=== PATIENT | female | born 1935 ===

== ENCOUNTER 2018-03-17 20:27 | Inpatient (IN) | payer MEDICARE, BC ==
[~2018-03-17] VITALS: Ht 157.5 cm; Wt 53.1 kg
--- NOTE | 2018-03-17 20:39 | NUR ---
Suicide precautions implemented.
--- NOTE | 2018-03-17 20:50 | NUR ---
ER medically cleared pt for MHU admission
[2018-03-17] MEDS ORDERED: LATA7.5D OP (21:01)
[2018-03-17] MEDS ORDERED: BUDE180A IH (21:01)
[2018-03-17] MEDS ORDERED: FLUT16SP EA NOSTRIL (21:01)
[2018-03-17] MEDS ORDERED: OMEG-130 PO (21:01)
[2018-03-17] MEDS ORDERED: CRAN405C PO (21:01)
[2018-03-17] MEDS ORDERED: GLUC-208 PO (21:01)
[2018-03-17] MEDS ORDERED: CART5DRO EACHEYE (21:01)
[2018-03-17] MEDS ORDERED: LEVO88TA2 PO (21:01)
[2018-03-17] MEDS ORDERED: MAGN400C PO (21:01)
[2018-03-17] MEDS ORDERED: CALC-36 PO (21:01)
[2018-03-17] MEDS ORDERED: FEXO180T94 PO (21:01)
[2018-03-17] MEDS ORDERED: ASCO10007 PO (21:01)
[2018-03-17] MEDS ORDERED: VITA0.4T18 PO (21:01)
[2018-03-17] MEDS ORDERED: BETA60LO4 TP (21:01)
[2018-03-17] MEDS ORDERED: VITA400C68 PO (21:01)
--- NOTE | 2018-03-17 21:08 | NUR ---
Report given to BONNY Hampton
--- NOTE | 2018-03-17 21:49 | NUR ---
Pt. admitted to MHU , under care of Dr. Shannon/Ephraim Lee DNP Belongs List completed
[2018-03-17] MEDS ORDERED: MAG HYDROX/AL HYDROX/SIMETH 30 ML LIQUID UDC PO PRN (22:00)
[2018-03-17 22:33] VITALS: BP 125/71
--- NOTE | 2018-03-17 23:00 | NUR ---
AT APPROX 2215 ADMITTED 82 YEARS OLD FEMALE FROM [facility] ON A [address] [facility]. ACCORDING TO HOLD, PATIENT LIVES AT HOME ALONE. SHE OD ON AN UNKNOWN AMOUNT OF ADVIL PILLS AND TOLD HER DAUGHTER THAT SHE WANTED TO . PATIENT WAS MEDICALLY CLEARED AT THE SAME HOSPITAL. HOLD WILL BE UP ON 03/20/18 AT 0625. FACE TO FACE ASSESSMENT WAS DONE. PATIENT. PATIENT IS NOTED A/O X4 AMBULATORY. SHE STATED THAT SHE OD ON PILLS BECAUSE SHE IS FEELING DEPRESSED SINCE HER THREE SISTER IN THE LAST YEARS; HOWEVER, SHE STATED THAT "IT WAS VERY STUPID OF ME TO DO THAT AND I REGRET IT." PATIENT IS ABLE TO CFS. SKIN ASSESSMENT DONE, WARM AND INTACT EXCEPT FOR SOME PURPLE SPOT ON HER LEFT ANTECUBITAL ARM, PER PATIENT, IT IS FROM BLOOD DRAWS FORM THE OTHER HOSPITAL. PATIENT IS UNDER THE CARE OF DR LEARY, WE WILL CONTINUE TO MONITOR.
[2018-03-17] MEDS: TEMAZEPAM 7.5 MG CAPSULE PO PRN (23:56)
--- NOTE | 2018-03-18 03:58 | NUR ---
ACCORDING TO RECORDS AND PER PATIENT, SHE HAD A COMPLETE RIGHT KNEE REPLACEMENT ON 09/27/17 AND SHE FELL AT HOME ON 02/25/18
[2018-03-18] MEDS ORDERED: LORAZEPAM 0.5 MG TABLET PO PRN (04:30)
[2018-03-18 07:30] VITALS: BP 124/58
[2018-03-18] MEDS: LEVOTHYROXINE SODIUM 88 MCG TABLET PO SCH (08:38)
[2018-03-18] MEDS: FLUTICASONE PROP NASAL SPRAY 16 GM BOTTLE NS SCH (08:51)
[2018-03-18] MEDS: BETAMETHASONE VALERATE 0.1% TP SCH ×2 (08:51→17:00)
[2018-03-18] MEDS: FEXOFENADINE HCL 180 MG TABLET PO SCH (08:51)
[2018-03-18] MEDS: FLUTICASONE/VILANTEROL 1 EACH BLST.W.DEV INH SCH (08:52)
[2018-03-18] MEDS ORDERED: FLUTICASONE/SALMETEROL 250/50 INHALER INH SCH (09:00)
[2018-03-18 15:58] VITALS: BP 92/53
[2018-03-18] MEDS: MAGNESIUM HYDROXIDE 30 ML LIQUID UDC PO PRN (18:40)
[2018-03-18 19:49] VITALS: BP 125/54
[2018-03-18] MEDS: ESCITALOPRAM OXALATE 10 MG TABLET PO SCH (20:50)
[2018-03-18] MEDS: LATANOPROST OPHT DROP 2.5 ML BOTTLE EACHEYE SCH (20:51)
[2018-03-18] MEDS: TEMAZEPAM 7.5 MG CAPSULE PO PRN (20:57)
[2018-03-19] MEDS ORDERED: LEVOTHYROXINE SODIUM 88 MCG TABLET PO SCH (06:30)
[2018-03-19 07:30] VITALS: BP 121/63
[2018-03-19] MEDS: LEVOTHYROXINE SODIUM 88 MCG TABLET PO SCH (08:04)
[2018-03-19] MEDS: FLUTICASONE PROP NASAL SPRAY 16 GM BOTTLE NS SCH (08:54)
[2018-03-19] MEDS: FEXOFENADINE HCL 180 MG TABLET PO SCH (08:54)
[2018-03-19] MEDS: FLUTICASONE/VILANTEROL 1 EACH BLST.W.DEV INH SCH (08:55)
[2018-03-19] MEDS: MAGNESIUM HYDROXIDE 30 ML LIQUID UDC PO PRN (08:55)
[2018-03-19] MEDS: BETAMETHASONE VALERATE 0.1% TP SCH ×2 (09:00→16:26)
--- NOTE | 2018-03-19 13:55 | NUR ---
Firearms Report: hall worker completed and submitted a [employer] firearms report for a DTS certification.
[2018-03-19] MEDS: OPTH EACHEYE SCH (16:26)
[2018-03-19] MEDS: AZOPT 1% EACHEYE SCH (16:26)
[2018-03-19 16:31] VITALS: BP 140/77
--- NOTE | 2018-03-19 16:37 | NUR ---
Initial Discharge Plan: Patient is a 82 year old female who currently lives in [place] with her and daughter, Marlene, in a home [[address], [place] [address]]. Per patient she would like to return home when ready. Patient also stated that she recently had a fall on 02/21/2018 and hurt her shoulder. Patient may benefit from home health services and nephrology social worker will further discuss this option with patient. clearing tub worker has attempted to reach out to patient daughterMt [ ], but received no answer so a voicemail was left. clearing tub worker will continue to collaborate with patient, patient family, and MD on a safe and proper discharge.
[2018-03-19] MEDS: ACETAMINOPHEN 325 MG TABLET PO PRN (16:48)
[2018-03-19 20:10] VITALS: BP 115/60
[2018-03-19] MEDS: ESCITALOPRAM OXALATE 10 MG TABLET PO SCH (20:22)
[2018-03-19] MEDS: LATANOPROST OPHT DROP 2.5 ML BOTTLE EACHEYE SCH (20:23)
[2018-03-19] MEDS: TEMAZEPAM 7.5 MG CAPSULE PO PRN (22:06)
[2018-03-20] MEDS: LEVOTHYROXINE SODIUM 88 MCG TABLET PO SCH (05:36)
--- NOTE | 2018-03-20 05:53 | NUR ---
GPS: REMAIN CALM AND COOPERATIVE WITH MEDICATIONS AND CARE, SLEPT 6:30 HRS THROUGH THE NIGHT AFTER SLEEPING MEDICATION GIVEN. DENIES SI AT THIS TIME. CONTINUE MONITORING FOR SAFETY.
[2018-03-20 07:30] VITALS: BP 134/68
[2018-03-20] MEDS: FLUTICASONE PROP NASAL SPRAY 16 GM BOTTLE NS SCH (08:35)
[2018-03-20] MEDS: FEXOFENADINE HCL 180 MG TABLET PO SCH (08:35)
[2018-03-20] MEDS: OPTH EACHEYE SCH ×2 (08:37→16:47)
[2018-03-20] MEDS: AZOPT 1% EACHEYE SCH ×2 (08:37→16:47)
[2018-03-20] MEDS: CARTEOLOL 1% EACHEYE SCH (08:37)
[2018-03-20] MEDS: FLUTICASONE/VILANTEROL 1 EACH BLST.W.DEV INH SCH (08:38)
[2018-03-20] MEDS: BETAMETHASONE VALERATE 0.1% TP SCH ×2 (08:39→16:47)
--- NOTE | 2018-03-20 11:37 | NUR ---
Gps/[employer]- Had been cooperative and pleasant, redirectable, compliant with her routine meds. min. prompting needed, making her needs known to the staff.Able to administer own eye gtts.with supervision.
--- NOTE | 2018-03-20 15:14 | NUR ---
Discharge Planning: family day care worker received return call from patient daughter, Mt [[phone]]. family day care worker had at length conversation with Mt regarding patient stay here in MHU and the discharge process. Mt has agreed to provide transportation for patient when ready for discharge. Patient daughter requested psychiatrist referrals for the [facility]. family day care worker provided patient with a list of Medicare accepting psychiatrists and also discussed with patient that she has been placed on a 5250. Patient was upset by this news. family day care worker provided patient with emotional counseling and informed her that she would have a probable cause hearing tomorrow, 03/21/2017 at 9:30am. Patient was in agreement and is calling her daughter, Mt, to see if she can also attend the hearing. family day care worker will remain available to patient and family and assist with any further needs regarding this matter.
[2018-03-20 16:00] VITALS: BP 123/65
[2018-03-20] MEDS: ESCITALOPRAM OXALATE 10 MG TABLET PO SCH (20:51)
[2018-03-20] MEDS: LATANOPROST OPHT DROP 2.5 ML BOTTLE EACHEYE SCH (20:51)
[2018-03-20 21:33] VITALS: BP 122/62
[2018-03-20] MEDS: TEMAZEPAM 7.5 MG CAPSULE PO PRN (23:39)
[2018-03-21] MEDS: LEVOTHYROXINE SODIUM 88 MCG TABLET PO SCH (06:12)
--- NOTE | 2018-03-21 06:35 | NUR ---
GPS: REMAIN CALM AND COOPERATIVE. PATIENT IS AMBULATORY SELF CARE. NO BEHAVIOR PROBLEM NOTED AT THIS TIME. SLEPT 7 HRS AFTER RESTORIL 7.5 MG PO GIVEN FOR SLEEP. CONTINUE PLAN OF CARE. DENIES SI. CONTINUE MONITORING FOR SAFETY.
[2018-03-21 07:30] VITALS: BP 134/71
[2018-03-21 07:44] LABS: BASOPHILS % (AUTO) 0.6 % (0.0-2.0); EOSINOPHILS # (AUTO) 0.2 K/uL (0.0-0.7); EOSINOPHILS % (AUTO) 3.9 % (0.0-7.0); HEMATOCRIT 39.7 % (31.2-41.9); HEMOGLOBIN 13.7 g/dL (10.9-14.3); LYMPHOCYTES # (AUTO) 2.1 K/uL (20.0-40.0); LYMPHOCYTES % (AUTO) 39.7 % (20.5-51.5); MEAN CORPUSCULAR HEMOGLOBIN 32.3 uug (24.7-32.8); MEAN CORPUSCULAR HGB CONC 35 g/dL (32.3-35.6); MEAN CORPUSCULAR VOLUME 93.4 fL (75.5-95.3); MONOCYTES # (AUTO) 0.5 K/uL (2.0-10.0); MONOCYTES % (AUTO) 8.9 % (0.0-11.0); NEUTROPHILS # (AUTO) 2.4 K/uL (1.8-8.9); NEUTROPHILS % (AUTO) 46.9 % (38.5-71.5); PLATELET COUNT (AUTO) 300 K/uL (179-408); RED BLOOD CELL COUNT(AUTO) 4.25 MIL/uL (3.63-4.92); WHITE BLOOD COUNT (AUTO) 5.2 K/uL (3.8-11.8)
[2018-03-21 08:15] LABS: CARBON DIOXIDE 28 mmol/L (21-32); CHLORIDE 93 mmol/L (98-107); CREATININE 0.5 mg/dL (0.6-1.3); GLUCOSE 99 mg/dL (74-106); MAGNESIUM 1.9 mg/dL (1.8-2.4); PHOSPHOROUS 3.7 mg/dL (2.5-4.9); POTASSIUM 3.4 mmol/L (3.5-5.1); UREA NITROGEN, BLOOD 11 mg/dL (7-18)
[2018-03-21] MEDS: CARTEOLOL 1% EACHEYE SCH (08:19)
[2018-03-21] MEDS: BETAMETHASONE VALERATE 0.1% TP SCH (08:20)
[2018-03-21] MEDS: FEXOFENADINE HCL 180 MG TABLET PO SCH (08:20)
[2018-03-21] MEDS: FLUTICASONE/VILANTEROL 1 EACH BLST.W.DEV INH SCH (08:20)
[2018-03-21] MEDS: FLUTICASONE PROP NASAL SPRAY 16 GM BOTTLE NS SCH (08:20)
[2018-03-21] MEDS: OPTH EACHEYE SCH (08:22)
[2018-03-21] MEDS: AZOPT 1% EACHEYE SCH (08:22)
[2018-03-21] MEDS: ACETAMINOPHEN 325 MG TABLET PO PRN (08:33)
--- NOTE | 2018-03-21 10:34 | NUR ---
Discharge Note: Patient had her probable cause hearing today and was released by the court. Patient will be discharged back to her home [[address] [place] [address]; ] where she lives with her daughter, Marlene, and . Transportation will be provided by her daughter, Mt [[phone]], who is aware and agreeable with discharge plan. Patient is alert and oriented x4, denies any SI/HI, and is able to plan for self-care. Patient will follow-up with her primary care physician, Dr. Ismael Lima [[address] , [place] [address]; ]. production staff worker has faxed [ ] patient continuation of care packet to patients PCP office. Patient currently does not have a psychiatrist and has been provided with a list of Medicare accepting psychiatrists in the [facility]. production staff worker has encouraged patient to schedule follow-up and patient agrees that she will. Patient was given outpatient mental health resources [facility] [ ], Sammi Rodríguez [ ], and the National Suicide Prevention Lifeline [ ]. Addendum: 03/21/18 at 1042 by ELENA CARL Correction: Patient was provided with mental health resources in the [facility] including: [facility] [[address] [address]; ], [facility] [ ], National Suicide Prevention Lifeline [ ].
[2018-03-21] MEDS ORDERED: POTASSIUM CHLORIDE 20 MEQ TAB.PRT.SR PO ONE (10:45)
--- NOTE | 2018-03-21 10:45 | NUR ---
PT NOTED TO BE HYPONATREMIC, NA IS 128. , OFFERED BOLUS IV TO INCREASE LEVEL BUT PT REFUSED, STATING "IT'S ALWAYS THAT LOW." ANDONIAN AWARE. PT ALSO NOTED WITH K 3.4. ORDERED KDUR 20MEQ X1. NOTED WILL CARRY OUT. PT IS ASYMPTOMATIC. ABLE TO MAKE ALL NEEDS KNOWN.
--- NOTE | 2018-03-21 10:58 | NUR ---
CALLED IN PRESCRIPTION OF LEXAPRO 5MG X1 MONTH NO REFILLS PER DR. LEARY'S ORDERS, TO PT'S PREFERRED PHARMACY [facility] IN [place] .
--- NOTE | 2018-03-21 11:00 | NUR ---
Gps/Environmental Education Specialist- Dr Elizabeth was in to see patient, made aware of todays lab results orders received.
--- NOTE | 2018-03-21 11:44 | NUR ---
Gps/Client Account Assistant- Patient was discharged to her home accompanied by her daughters.Patient in good spirit, denies discomfort. reviewed medications, diet, safety emphasized, continued verbalizations of her feelings and needs, adequate support from her family. All belongings and own medications from home given back to patient. Discharged to home via private car.
== END 2018-03-21 11:40 | disposition home or self-care (01) | DRG 885 ==
LOC: ER 20:29 → GPS 21:38
PROVIDERS: ADMIT Psychiatry & Neurology Psychiatry; ATTEND Hospitalist
DX: F32.2 Major depressive disorder, single episode, severe without psychotic features (principal); T39.312D Poisoning by propionic acid derivatives, intentional self-harm, subsequent encounter; E03.9 Hypothyroidism, unspecified; J45.909 Unspecified asthma, uncomplicated; H40.9 Unspecified glaucoma; Z79.899 Other long term (current) drug therapy; E78.5 Hyperlipidemia, unspecified
CPT/HCPCS: 36415; 71045; 83735; 84100; 85025; A4663; J3535